=== PATIENT | male | born 1930 | race Caucasian/White ===

== ENCOUNTER 2019-01-18 17:31 | Inpatient (IN) ==
--- NOTE | 2019-01-18 17:52 | Emergency Department Note ---
ED Disposition Clinical Impression: Hypoglycemia, Altered mental status, Weakness, Medication side effect, Pneumonia Disposition: Still a Patient Condition on Discharge: Fair Referrals: Kunal Fair MD [Primary Care Provider] - - Critical Care Critical Care Time: No Attestation: On 01/18/19, the high probability of a clinically significant, sudden or life threatening deterioration of the following system(s) required my full and direct attention, intervention and personal management. The time I documented below is in addition to time spent performing reported procedures but includes the fol lowing listed in this critical care notation. Medical Decision Making - Medical Records Medical records reviewed: Yes: I reviewed the patient's medical records. - Blane Inquiry Pt receiving controlled substance: No Blane was queried for this patient: No Vital Signs: 01/18/19 17:39 01/18/19 19:53 Temperature 98.6 F Temperature Source Oral Pulse Rate [Left Radial] 114 H 73 Respiratory Rate 17 16 Blood Pressure [Right Arm] 129/55 L 109/56 L Blood Pressure Mean [Right Arm] 79 73 Blood Pressure Source [Right Arm] Automatic Cuff Blood Pressure Position [Right Arm] Sitting 02 Sat by Pulse Oximetry 91 L 93 L Oxygen Delivery Method Room Air Nasal Cannula Oxygen Flow Rate (LPM) 2 - Lab Data Lab Results 01/18/19 17:34: POC Glucose 121 H 01/18/19 18:05: WBC 12.2 H, RBC 4.07 L, Hgb 12.6 L, Hct 38.1 L, MCV 93.7, MCH 31.1, MCHC 33.2, RDW 13.4, Plt Count 396, MPV 7.1 L, Neut % (Auto) 90.7 H, Lymph % (Auto) 3.7 L, [place] % (Auto) 5.1, Eos % (Auto) 0.4, Baso % (Auto) 0.1, Neut # (Auto) 11.1 H, Lymph # (Auto) 0.5 L, [place] # (Auto) 0.6, Eos # (Auto) 0.1, Baso # (Auto) 0.0, Total Counted 100, Neutrophils % (Manual) 87 H, Band Neutrophils % 7.0, Lymphocytes % (Manual) 4 L, Monocytes % (Manual) 2, Platelet Estimate [place], RBC Morphology Normal 01/18/19 18:05: Sodium 138, Potassium 4.2, Chloride 101, Carbon Dioxide 25, Anion Gap 16.2 H, BUN 14, Creatinine 0.93, Estimated Creat Clear 61, Estimated GFR 77, Est GFR ( Amer) 93, Glucose 120 H, Calcium 8.2 L, Total Bilirubin 0.3, AST 50 H, ALT 40, Alkaline Phosphatase 51, Total Creatine Kinase 610 H*, CK-MB (CK-2) 5.2 H, CK-MB (CK-2) Rel Index 0.9, Troponin I < 0.02, Total Protein 6.6, Albumin 2.9 L, Globulin 3.7 H, Albumin/Globulin Ratio 0.8 L 01/18/19 18:40: Urine Color Yellow, Urine Appearance Clear, Urine pH 6.0, Ur Specific [place] 1.025, Urine Protein 1+, Urine Glucose (UA) Negative, Urine Ketones Negative, Urine Blood Trace-i, Urine Nitrate Negative, Urine Bilirubin Negative, Urine Urobilinogen 0.2, Ur Leukocyte Esterase Negative, Urine RBC 3-5, Urine WBC 3-5, Ur Renal Epithelial Cell Occasional, Hyaline Casts 3-5 01/18/19 18:40: Urine Opiates Screen Positive H, Urine Methadone Screen Negative, Ur Barbituates Screen Negative, Ur Phencyclidine Scrn Negative, Ur Amphetamines Screen Negative, U Benzodiazepines Scrn Negative, Urine Cocaine Screen Negative, U Marijuana (THC) Screen Negative 01/18/19 19:53: POC Glucose 88 Result diagrams: 01/18/19 18:05 01/18/19 18:05 Orders (Tests/Meds): ED MEDICATIONS Discontinued Medications Generic Name Dose Route Start Last Admin Trade Name Glenn PRN Reason Stop Dose Admin Naloxone HCl 0.4 mg 01/18/19 19:17 01/18/19 19:29 Narcan 0.4mg/Ml Vial IV 01/18/19 19:18 0.4 mg ONCE ONE Administration ORDERS Category Date Time Status CT head/brain wo con Stat Cat Scan 01/18/19 17:47 Taken XR chest portable Stat Exams 01/18/19 17:47 Taken Urinalysis and Microscopic Stat Lab 01/18/19 18:40 Ordered ABG [Arterial Blood Gas] Stat RT 01/18/19 17:55 Ordered - Radiology Data #1 Image(s): Chest Image Reviewed: Yes I reviewed the patient's radiology image Preliminary Findings: Abnormal CXR preliminary report: Chronic changes cannot exclude acute infiltrates - ECG Data Tracing #1 Normal sinus rhythm 88/min Baseline artifact no acute findings ECG initial impression date: 01/18/19 ECG initial impression time: 17:05 Medical Decision Narrative: Patient remained hemodynamically stable, he remained stable on 2 L nasal cannula to keep his saturation above 90%, he was given Narcan with no difference in his mental status. I was unable to comment on his chest x-ray due to rotation and chronic changes pneumonia cannot be excluded. I spoke with Dr. Thompson who agreed to admit the patient for IV antibiotics and oxygen supplementation Altered Mental Status HPI - General Chief Complaint: Weakness Stated Complaint: weakness Time Seen by Provider: 01/18/19 17:40 Mode of Arrival: EMS Limitations: No Limitations Description of Symptoms (Recalled from ER Triage Doc. by RN): Per EMS pt fell going down on his knees, daugher states she eased him down and has been weak with no appetite for a few days - History of Present Illness HPI narrative: 88 years old white male with history of Dementia, diabetes mellitus type 2 and peripheral neuropathy. He has recently started a new medication for dementia an d uses Neurontin, tramadol, and hydrocodone for his neuropathy. Per his daughter he usually stays up all night watching TV and sleeps during the day. Today at 5 PM when she arrived he was moaning and groaning, so she contacted the EMS who arrived and found his blood sugar to be in the 50s and was given glucose with improvement, got up walked to the bathroom and back but upon arrival to the kitchen his knees got weak and he buckled, she assisted him to a chair and contacted EMS again and was brought to the ED for evaluation. ED the patient is alert oriented to person and place but not the date and his daughter states this is normal for him if he does not have his watch. He denies having chest pain shortness of breath abdominal pain nausea vomiting or diarrhea. He denies having dysuria hematuria or frequency. He is in no cardiopulmonary distress. complaint: weakness Onset (ago): minute(s) Time: 17:00 Timing confirmed by: family member Severity: moderate Consistency of symptoms: waxing and waning Context: change in medication Treatments prior to arrival: glucose - Related Data Home Medications Medication Instructions Recorded Confirmed Ascorbic Acid [Vitamin C] 500 mg PO DAILY 01/18/19 01/18/19 Aspirin [Aspir 81] 81 mg PO DAILY 01/18/19 01/18/19 Carbidopa/Levodopa [Carbidopa-Levo 1 each PO DAILY 01/18/19 01/18/19 25-100 mg Odt] Fenofibrate Nanocrystallized 145 mg PO DAILY 01/18/19 01/18/19 [Fenofibrate] Furosemide [Furosemide 40MG tAB] 40 mg PO DAILY 01/18/19 01/18/19 Glimepiride 4 mg PO DAILY 01/18/19 01/18/19 Hydrocod/Acet 5/325 mg [[place] 1 tab PO DAILY 01/18/19 01/18/19 5/325mg tablet] Insulin NPH Hum/Reg Insulin Hm 15 unit SQ DAILY 01/18/19 01/18/19 [Humulin 70/30 Kwikpen] Levothyroxine Sodium [Synthroid 25 mcg PO DAILY 01/18/19 01/18/19 25mcg (0.025mg) tablet] Memantine HCl/Donepezil HCl 21 mg PO DAILY 01/18/19 01/18/19 [Namzaric 21 mg-10 mg Capsule] Metformin HCl 1,000 mg PO DAILY 01/18/19 01/18/19 Metoclopramide HCl [Metoclopramide 5 mg PO DAILY 01/18/19 01/18/19 10mg Tablet] Multivitamin [Multi-Day Vitamins] 1 each PO DAILY 01/18/19 01/18/19 Perindopril Erbumine 4 mg PO DAILY 01/18/19 01/18/19 Pravastatin Sodium 80 mg PO DAILY 01/18/19 01/18/19 Spironolactone 25 mg PO DAILY 01/18/19 01/18/19 Tramadol HCl [Tramadol 50mg 50 mg PO DAILY 01/18/19 01/18/19 Tab] Allergies Allergy/AdvReac Type Severity Reaction Status Date / Time Penicillins [PENICILLINS] Allergy Intermediate I-HIVES Unverified 11/13/17 14:33 [facility] History - Hepatitis A Screen Drug use history?: No High risk sexual behaviors?: No History of sexually transmitted infection?: No Currently employed?: No Childcare worker?: No Do you have indoor plumbing?: Yes Do you have electricity?: Yes Attestation statement:: This patient has been screened for Hepatitis A risk factors. I have reviewed the patient's past medical history: Yes Medical History: Reports:: Diabetes Mellitus Type 2 Denies:: Diabetes Mellitus Type 1 - Social History Alcohol Intake: never Occupational Status: retired - Psychiatric History Expresses thoughts of harming self/others: None Suicide Plan Description: No Plan ROS Obtained: Yes All systems reviewed & no additional complaints Physical Exam - General General appearance: alert, in no apparent distress - Head Head exam: atraumatic, normocephalic, normal inspection - Eye Eye exam: Present: normal appearance, PERRL, EOMI, conjunctival redness. Absent: scleral icterus, nystagmus - ENT ENT exam: Present: normal exam, normal oropharynx, mucous membranes moist, TM's normal bilaterally, normal external ear exam - Neck Neck exam: Present: normal inspection, full ROM, trachea midline. Absent: tenderness, meningismus, lymphadenopathy - Chest Chest inspection: Present: normal inspection, symmetric chest wall rise. Absent: tenderness - Respiratory Respiratory exam: Present: normal lung sounds bilaterally, other (Initially he had coarse rhonchi that cleared with deep inspiration. ). Absent: respiratory distress, wheezes - Cardiovascular Cardiovascular exam: Present: regular rate, normal rhythm, normal heart sounds. Absent: JVD - Abdominal Exam Abdominal exam: Present: soft, normal bowel sounds. Absent: distention, tenderness, guarding, rebound, rigidity - Extremities Exam Extremities exam: Present: normal inspection, full ROM, normal capillary refill. Absent: tenderness, pedal edema, calf tenderness - Back Exam Back exam: Present: normal inspection. Absent: full ROM, tenderness, CVA tenderness (R), CVA tenderness (L), paraspinal tenderness, vertebral tenderness - Neurological Exam Neurological exam: Present: alert, CN II-XII intact, motor sensory deficit, reflexes normal (Is oriented to place and person but not the date or the day.) - Psychiatric Psychiatric exam: Present: normal affect, normal mood - Skin Skin exam: Present: warm, dry, intact, normal color - Lymphatic Lymphatic Findings: no adenopathy
[2019-01-18 18:16] LABS: Basophils % 0.1 % (0.1-2.0); Eosinophils # 0.1 K/mm3 (0.0-0.4); Eosinophils % 0.4 % (0.1-12.0); Hematocrit 38.1 % (42.0-52.0); Hemoglobin 12.6 g/dL (14.1-18.0); Lymphocytes # 0.5 K/mm3 (0.7-4.5); Lymphocytes % 3.7 % (10-50); Mean Corpuscular HGB Conc 33.2 g/dL (31.8-35.4); Mean Corpuscular Hemoglobin 31.1 pg (27.0-31.2); Mean Corpuscular Volume 93.7 fl (80-94); Mean Platelet Volume 7.1 fl (7.4-10.4); Monocytes # 0.6 K/mm3 (0.1-1.0); Monocytes % 5.1 % (1.7-9.3); Neutrophils # 11.1 K/mm3 (1.8-7.8); Neutrophils % 90.7 % (37.0-80.0); Platelet Count 396 K/mm3 (142-424); Red Blood Count 4.07 M/mm3 (4.60-6.20); Red Cell Distribution Width 13.4 % (11.5-17.5); White Blood Count 12.2 K/mm3 (4.8-10.8)
[2019-01-18 18:32] LABS: Lymphocytes % 4 % (10-50); Monocytes % 2 % (2-9); Neutrophils % 87 % (42-76); Total Cells Counted 100
[2019-01-18 18:33] LABS: RBC Morphology Normal
[2019-01-18 18:44] LABS: Alanine Aminotransferase 40 U/L (12-78); Albumin Level 2.9 gm/dL (3.4-5.0); Albumin/Globulin Ratio 0.8 (1.1-1.8); Alkaline Phosphatase 51 U/L (46-116); Anion Gap 16.2 mEq/L (5-15); Aspartate Amino Transferase 50 U/L (15-37); Bilirubin,Total 0.3 mg/dL (0.2-1.0); Blood Urea Nitrogen 14 mg/dL (7-18); Calcium 8.2 mg/dL (8.5-10.1); Carbon Dioxide 25 mmol/L (21.0-32.0); Chloride 101 mmol/L (98-107); Creatine Kinase 610 U/L (39-308); Globulin 3.7 gm/dl (1.3-3.2); Glucose 120 mg/dL (74-106); Potassium 4.2 mmoL/L (3.5-5.1); Sodium 138 mmol/L (136-145); Total Protein,Serum 6.6 gm/dL (6.4-8.2)
[2019-01-18 18:44] LABS: Microscopic, Urine URINE MICROSCOPIC (MICROSCOPIC)
[2019-01-18 18:47] LABS: Appearance,Urine CLEAR (Clear); Bilirubin,Urine Negative (Negative); Blood, Urine TRACE-I (Negative); Color,Urine YELLOW (Yellow); Glucose,Urine (UA) Negative (Negative); Ketones,Urine Negative (Negative); Leukocyte Esterase,Urine Negative (Negative); Protein,Urine 1+ (Negative); Specific Gravity, Urine 1.025 (1.005-1.030); Urobilinogen,Urine 0.2 EU/dl (0.2)
[2019-01-18 18:57] LABS: Amphetamine/Metha Screen,Urine Negative ng/mL (<1000); Barbiturates Screen,Urine Negative ng/mL (<200); Benzodiazepines Screen,Urine Negative ng/mL (<200); Cannabinoid Screen,Urine Negative ng/mL (<50); Cocaine Screen,Urine Negative ng/mL (<300); Methadone Screen,Urine Negative ng/mL (<300); Opiate Screen,Urine Positive ng/mL (<300); Phencyclidine Screen,Urine Negative ng/mL (<25)
[2019-01-18 18:58] LABS: Renal Epithelial Cells,Urine Occasional #/lpf (0)
[2019-01-18 20:15] LABS: ABG Base Excess 2.7 mmol/L (-2.4-2.3); ABG HCO3 26.1 mmhg (22.0-26.0); ABG Oxygen Saturation 95 % (90-100); ABG PH 7.49 mmol/L (7.35-7.45); ABG PO2 72.7 mmhg (80-100); ABG TCO2 27.1 mmhg (23-27); Oxygen 2 %
[2019-01-18 20:16] LABS: Allen's Test Y
[2019-01-19 06:51] LABS: Basophils % 0.1 % (0.1-2.0); Eosinophils % 0.1 % (0.1-12.0); Hematocrit 37.6 % (42.0-52.0); Hemoglobin 12.3 g/dL (14.1-18.0); Lymphocytes # 0.6 K/mm3 (0.7-4.5); Lymphocytes % 9.4 % (10-50); Mean Corpuscular HGB Conc 32.7 g/dL (31.8-35.4); Mean Corpuscular Hemoglobin 30.6 pg (27.0-31.2); Mean Corpuscular Volume 93.6 fl (80-94); Mean Platelet Volume 6.8 fl (7.4-10.4); Monocytes # 0.6 K/mm3 (0.1-1.0); Monocytes % 9.2 % (1.7-9.3); Neutrophils # 5.3 K/mm3 (1.8-7.8); Neutrophils % 81.2 % (37.0-80.0); Platelet Count 376 K/mm3 (142-424); Red Blood Count 4.02 M/mm3 (4.60-6.20); Red Cell Distribution Width 13.4 % (11.5-17.5); White Blood Count 6.6 K/mm3 (4.8-10.8)
[2019-01-19 06:55] LABS: Anion Gap 13.9 mEq/L (5-15); Calcium 8.5 mg/dL (8.5-10.1); Potassium 3.9 mmoL/L (3.5-5.1)
--- NOTE | 2019-01-19 08:07 | Pharmacy Consult Notes ---
[facility] Pharmacy VTE Monitoring - Patient Demographics Admission date: 01/18/19 Report Date: 01/19/19 Time: 08:07 Allergies/Adverse Reactions: Patient Allergies Penicillins [PENICILLINS] Allergy (Intermediate, Verified 01/18/19 20:31) I-HIVES Height: 1.8 m Weight: 88.989 kg Patient Problems: Current Active Problems Hypoglycemia (Acute) Altered mental status (Acute) Weakness (Acute) Medication side effect (Acute) Pneumonia (Acute) - VTE Risk Labs: VTE Related Lab Results Hgb 12.3 g/dL (14.1-18.0) L 01/19/19 06:28 Hct 37.6 % (42.0-52.0) L 01/19/19 06:28 Plt Count 376 K/mm3 (142-424) 01/19/19 06:28 BUN 13 mg/dL (7-18) 01/19/19 06:28 Creatinine 0.93 mg/dL (0.70-1.30) 01/19/19 06:28 Estimated Creat Clear 67 mL/min (50-200) 01/19/19 06:28 Was VTE Risk Assessment Performed: Yes VTE Score: 6 VTE Risk Level: Moderate Risk - Prophylaxis VTE Prophylaxis Ordered?: Yes Types of VTE Prophylaxis: TEDS Knee High Location of Applied Device: Bilateral Lower Extremeties - VTE Diagnosis Confirmed Treatment or plan recommended: Continue Current Treatment
--- NOTE | 2019-01-19 15:47 | History & Physical Report ---
*Admission Date: 01/18/19 *Chief complaint: Change in mental status. *History of present illness: This 88-year-old white male diabetic suffered a decline in his mental and physical health over the past several months. He was admitted through the emergency room last night with a definite change in mental status and with weakness. He was brought to the emergency room by his family. They are not with him during this assessment and the patient is quite confused and disoriented during this assessment. On admission he had an elevated white blood cell count but on repeat this morning it was normal. He has had episodic low- grade fever since admission. The nurse reports that he seems less confused this morning but is definitely confused this afternoon. His blood sugar was found to be low when he was admitted through the emergency room. He takes carbidopa levodopa for Parkinson's disease. His family states that he has become more of a management issue recently. [facility] History I have reviewed the patient's past medical history: Yes (He has thyroid disease and takes levothyroxine) Medical History: Reports:: Cancer (prostate), Diabetes Mellitus Type 2 Denies:: Cerebrovascular Accident, Diabetes Mellitus Type 1, MRSA *Have you ever received a pneumonia vaccine?: Yes *Have you received a flu vaccine this season?: Yes Other Medical History: Reports: Cataracts (20 plus years ago), Sinus Problems (seasonal), Thyroid Disease (hypothyroidisn) Other Surgeries: Yes: Cancer Surgery (prostate), Cardiac Catheterization, Other (He has had a toe amputated) Amputation: Yes Fractures: Yes (bilateral wrist fx) - *Social History Educational Level: Completed College Smoking Status: Former smoker Tobacco Type: cigarettes # Packs/Day (cigarettes): 1 #Yrs smoked (if former smoker): 50 Smoking End Date: 1989 Alcohol Intake: never Substance Use Type: denies use *Occupational Status:: retired Household Members: spouse, children (A son of a heart attack a year ago.) *Travel in the last 8 weeks: None - Psychiatric History Expresses thoughts of harming self/others: None Suicide Plan Description: No Plan Family Hx:: Coronary Artery Disease Comment: There is heart disease and high blood pressure in the family. Review of Systems - Review of Systems Review of systems:: unable to obtain Meds Home Medications Medication Instructions Recorded Confirmed Type Aspirin [Aspir 81] 81 mg PO DAILY 01/18/19 01/18/19 History Fenofibrate Nanocrystallized 145 mg PO DAILY 01/18/19 01/18/19 History [Fenofibrate] Furosemide [Furosemide 40MG tAB] 40 mg PO BID 01/18/19 01/19/19 History Glimepiride 4 mg PO BID 01/18/19 01/19/19 History Hydrocod/Acet 5/325 mg [[place] 1 tab PO TIDP PRN 01/18/19 01/19/19 History 5/325mg tablet] Insulin NPH Hum/Reg Insulin Hm 0 unit SQ DIRECTED 01/18/19 01/19/19 History [Humulin 70/30 Kwikpen] Levothyroxine Sodium [Synthroid 25 mcg PO DAILY 01/18/19 01/18/19 History 25mcg (0.025mg) tablet] Memantine HCl/Donepezil HCl 1 cap PO HS 01/18/19 01/19/19 History [Namzaric 21 mg-10 mg Capsule] Metformin HCl 1,000 mg PO BID 01/18/19 01/19/19 History Multivitamin [Multi-Day Vitamins] 1 each PO DAILY 01/18/19 01/18/19 History Perindopril Erbumine 2 mg PO DAILY 01/18/19 01/19/19 History Pravastatin Sodium 80 mg PO HS 01/18/19 01/19/19 History Spironolactone 25 mg PO DAILY 01/18/19 01/18/19 History Tramadol HCl [Tramadol 50mg 50 mg PO TID 01/18/19 01/19/19 History Tab] Ascorbic Acid [Vitamin C with [place] 1,000 mg PO DAILY 01/19/19 01/19/19 History Hips] Carbidopa/Levodopa 0 tab PO DIRECTED 01/19/19 01/19/19 History [Carbidopa/Levodopa 25/100mg Tablet] Gabapentin 800 mg PO TID 01/19/19 01/19/19 History Metoclopramide HCl [Reglan 5mg 2.5 mg PO TIDP PRN 01/19/19 01/19/19 History Tablet] Allergies Allergy/AdvReac Type Severity Reaction Status Date / Time Penicillins [PENICILLINS] Allergy Intermediate I-HIVES Verified 01/18/19 20:31 Exam Vital signs and Labs for Last 24 Hours: Temp Pulse Resp BP Pulse Ox 100.4 F H 78 24 172/85 H 96 01/19/19 12:43 01/19/19 12:43 01/19/19 12:43 01/19/19 12:43 01/19/19 12:43 Laboratory Results - last 24 hr 01/18/19 17:34: POC Glucose 121 H 01/18/19 18:05: WBC 12.2 H, RBC 4.07 L, Hgb 12.6 L, Hct 38.1 L, MCV 93.7, MCH 31.1, MCHC 33.2, RDW 13.4, Plt Count 396, MPV 7.1 L, Neut % (Auto) 90.7 H, Lymph % (Auto) 3.7 L, [place] % (Auto) 5.1, Eos % (Auto) 0.4, Baso % (Auto) 0.1, Neut # (Auto) 11.1 H, Lymph # (Auto) 0.5 L, [place] # (Auto) 0.6, Eos # (Auto) 0.1, Baso # (Auto) 0.0, Total Counted 100, Neutrophils % (Manual) 87 H, Band Neutrophils % 7.0, Lymphocytes % (Manual) 4 L, Monocytes % (Manual) 2, Platelet Estimate Normal, RBC Morphology Normal 01/18/19 18:05: Sodium 138, Potassium 4.2, Chloride 101, Carbon Dioxide 25, Anion Gap 16.2 H, BUN 14, Creatinine 0.93, Estimated Creat Clear 61, Estimated GFR 77, Est GFR ( Amer) 93, Glucose 120 H, Calcium 8.2 L, Total Bilirubin 0.3, AST 50 H, ALT 40, Alkaline Phosphatase 51, Total Creatine Kinase 610 H*, CK-MB (CK-2) 5.2 H, CK-MB (CK-2) Rel Index 0.9, Troponin I < 0.02, Total Protein 6.6, Albumin 2.9 L, Globulin 3.7 H, Albumin/Globulin Ratio 0.8 L 01/18/19 18:40: Urine Color Yellow, Urine Appearance Clear, Urine pH 6.0, Ur Specific [place] 1.025, Urine Protein 1+, Urine Glucose (UA) Negative, Urine Ketones Negative, Urine Blood Trace-i, Urine Nitrate Negative, Urine Bilirubin Negative, Urine Urobilinogen 0.2, Ur Leukocyte Esterase Negative, Urine RBC 3-5, Urine WBC 3-5, Ur Renal Epithelial Cell Occasional, Hyaline Casts 3-5 01/18/19 18:40: Urine Opiates Screen Positive H, Urine Methadone Screen Negative, Ur Barbituates Screen Negative, Ur Phencyclidine Scrn Negative, Ur Amphetamines Screen Negative, U Benzodiazepines Scrn Negative, Urine Cocaine Screen Negative, U Marijuana (THC) Screen Negative 01/18/19 19:53: POC Glucose 88 01/18/19 20:14: Specimen Source R/r, O2 % 2, ABG pH 7.49 H, ABG pCO2 35.0, ABG pO2 72.7 L, ABG HCO3 26.1 H, ABG Total CO2 27.1 H, ABG O2 Saturation 95, ABG Base Excess 2.7 H, [place] Test Y 01/19/19 05:59: POC Glucose 90 01/19/19 06:28: WBC 6.6 D, RBC 4.02 L, Hgb 12.3 L, Hct 37.6 L, MCV 93.6, MCH 30.6, MCHC 32.7, RDW 13.4, Plt Count 376, MPV 6.8 L, Neut % (Auto) 81.2 H, Lymph % (Auto) 9.4 L, [place] % (Auto) 9.2, Eos % (Auto) 0.1, Baso % (Auto) 0.1, Neut # (Auto) 5.3, Lymph # (Auto) 0.6 L, [place] # (Auto) 0.6, Eos # (Auto) 0.0, Baso # (Auto) 0.0 01/19/19 06:28: Sodium 139, Potassium 3.9, Chloride 103, Carbon Dioxide 26, Anion Gap 13.9, BUN 13, Creatinine 0.93, Estimated Creat Clear 67, Estimated GFR 77, Est GFR ( Amer) 93, Glucose 97, Calcium 8.5 01/19/19 11:19: POC Glucose 145 H I & O for Last 24 hours: Intake & Output 01/17/19 01/18/19 01/19/19 01/20/19 11:59 11:59 11:59 11:59 Intake Total 1480 / 1480 0 / 0 Output Total 600 / 600 Balance 880 / 880 0 / 0 Weight 196 lb 3 oz Microbiology Reports for the Last 24 Hours: Microbiology 01/18/19 22:00 Sputum - Expectorated Sputum Gram Stain - Final - Constitutional Comments: He was in bed resting at the time of this exam. He was asleep and awakened. He was confused and disoriented and unable to identify me or his location. He seemed to have trouble directing his gaze. - *Routine HEENT Exam Head: Present: normocephalic Eye: Present: PERRL. Absent: conjunctival icterus (But there was chemosis present) ENT: Present: mucous membranes moist - *Routine Neck Exam Present: supple - Routine Chest/Breast/Axilla Exam Chest wall: Absent: tenderness Axillae: Absent: lymphadenopathy - *Routine Respiratory Exam Present: decreased breath sounds, CTA bilaterally - *Routine Cardiovascular Exam Present: RRR - *Routine Abdominal Exam Present: soft Comments: He describes some epigastric tenderness. - *Routine Rectal Exam Comments: No rectal exam done. - *Routine Extremities Exam Absent: edema - *Routine Skin Exam Present: intact, dry - *Routine Neurological Exam Present: altered mental status. Absent: alert, oriented X3 Babinski was equivocal on the right H&P: Result - Imaging and Cardiology CT scan - head Status: final report Chest x-ray Status: final report Assessment and Plan (1) Insulin dependent diabetes mellitus Current visit: Yes Status: Acute Category: Medical Code(s): E11.9 - Type 2 diabetes mellitus without complications; Z79.4 - intermediate (current) use of insulin (2) Hypothyroidism (acquired) Current visit: Yes Status: Acute Category: Medical Code(s): E03.9 - Hypothyroidism, unspecified (3) History of prostate cancer Current visit: Yes Status: Acute Category: Medical Code(s): Z85.46 - Personal history of malignant neoplasm of prostate (4) Altered mental status Current visit: Yes Status: Acute Category: Medical Code(s): R41.82 - Altered mental status, unspecified (5) Hypoglycemia Current visit: Yes Status: Acute Category: Medical Code(s): E16.2 - Hypoglycemia, unspecified (6) Medication side effect Current visit: Yes Status: Acute Category: Medical Code(s): T88.7XXA - Unspecified adverse effect of drug or medicament, initial encounter (7) Pneumonia Current visit: Yes Status: Acute Category: Medical Code(s): J18.9 - Pneumonia, unspecified organism (8) Weakness Current visit: Yes Status: Acute Category: Medical Code(s): R53.1 - Weakness - Assessment and plan all Dx Assessment and Plan for all problems:: Repeat labs including cardiac enzymes. Consider additional antibiotic.
[2019-01-19 15:55] LABS: Basophils % 0.1 % (0.1-2.0); Eosinophils % 0.4 % (0.1-12.0); Hematocrit 38.9 % (42.0-52.0); Hemoglobin 12.8 g/dL (14.1-18.0); Lymphocytes # 0.5 K/mm3 (0.7-4.5); Lymphocytes % 8.7 % (10-50); Mean Corpuscular HGB Conc 32.8 g/dL (31.8-35.4); Mean Corpuscular Hemoglobin 30.8 pg (27.0-31.2); Mean Platelet Volume 6.8 fl (7.4-10.4); Monocytes # 0.4 K/mm3 (0.1-1.0); Neutrophils # 5.2 K/mm3 (1.8-7.8); Neutrophils % 83.9 % (37.0-80.0); Platelet Count 354 K/mm3 (142-424); Red Blood Count 4.14 M/mm3 (4.60-6.20); Red Cell Distribution Width 13.6 % (11.5-17.5); White Blood Count 6.2 K/mm3 (4.8-10.8)
[2019-01-19 16:07] LABS: Anion Gap 13.5 mEq/L (5-15); Potassium 3.5 mmoL/L (3.5-5.1)
[2019-01-19 16:08] LABS: Calcium 8.4 mg/dL (8.5-10.1)
--- NOTE | 2019-01-20 08:18 | Progress Note ---
Internal Medicine - PN: Subj *Date: 01/20/19 *Time: 08:15 Interval history: Patient does not feel well this a.m. He does not why. He denies chest pain and shortness of breath. He does not feel like eating. Exam Vital signs and Labs for Last 24 Hours: Temp Pulse Resp BP Pulse Ox 97.3 F L 78 20 145/70 H 95 01/20/19 08:00 01/20/19 08:00 01/20/19 08:00 01/20/19 08:00 01/20/19 08:00 Laboratory Results - last 24 hr 01/19/19 11:19: POC Glucose 145 H 01/19/19 15:45: Total Creatine Kinase 619 H*, CK-MB (CK-2) 2.2 D, CK-MB (CK-2) Rel Index 0.4, Troponin I 0.02 01/19/19 15:45: Sodium 137, Potassium 3.5, Chloride 99, Carbon Dioxide 25, Anion Gap 13.5, BUN 17 D, Creatinine 1.03, Estimated Creat Clear 65, Estimated GFR 68, Est GFR ( Amer) 83, Glucose 237 H D, Calcium 8.4 L 01/19/19 15:45: WBC 6.2, RBC 4.14 L, Hgb 12.8 L, Hct 38.9 L, MCV 94.0, MCH 30.8, MCHC 32.8, RDW 13.6, Plt Count 354, MPV 6.8 L, Neut % (Auto) 83.9 H, Lymph % (Auto) 8.7 L, [place] % (Auto) 7.0, Eos % (Auto) 0.4, Baso % (Auto) 0.1, Neut # (Auto) 5.2, Lymph # (Auto) 0.5 L, [place] # (Auto) 0.4, Eos # (Auto) 0.0, Baso # (Auto) 0.0 01/19/19 16:24: POC Glucose 213 H 01/19/19 22:32: POC Glucose 240 H 01/20/19 05:35: Total Creatine Kinase 350 H D 01/20/19 06:44: POC Glucose 222 H I & O for Last 24 hours: Intake & Output 01/17/19 01/18/19 01/19/19 01/20/19 11:59 11:59 11:59 11:59 Intake Total 1480 / 1480 0 / 0 Output Total 600 / 600 3600 / 3600 Balance 880 / 880 -3600 / -3600 Weight 196 lb 3 oz Microbiology Reports for the Last 24 Hours: Microbiology 01/18/19 22:00 Sputum - Expectorated Sputum Gram Stain - Final 01/18/19 22:00 Sputum - Expectorated Sputum Sputum Culture - Preliminary - Constitutional no acute distress Comments: Appears not to feel well - *Routine Respiratory Exam Comments: Crackles on the right. Decreased breath sounds on the left - *Routine Cardiovascular Exam Present: RRR - *Routine Abdominal Exam Present: soft, normoactive bowel sounds. Absent: tenderness, distended - *Routine Extremities Exam Absent: edema, calf tenderness - *Routine Neurological Exam Somewhat lethargic. Answers all questions appropriately. Assessment and Plan (1) Insulin dependent diabetes mellitus Current visit: Yes Status: Acute Category: Medical Code(s): E11.9 - Type 2 diabetes mellitus without complications; Z79.4 - intermediate (current) use of insulin (2) Hypothyroidism (acquired) Current visit: Yes Status: Acute Category: Medical Code(s): E03.9 - Hypothyroidism, unspecified (3) History of prostate cancer Current visit: Yes Status: Acute Category: Medical Code(s): Z85.46 - Personal history of malignant neoplasm of prostate (4) Altered mental status Current visit: Yes Status: Acute Category: Medical Code(s): R41.82 - Altered mental status, unspecified (5) Hypoglycemia Current visit: Yes Status: Acute Category: Medical Code(s): E16.2 - Hypoglycemia, unspecified (6) Medication side effect Current visit: Yes Status: Acute Category: Medical Code(s): T88.7XXA - Unspecified adverse effect of drug or medicament, initial encounter (7) Pneumonia Current visit: Yes Status: Acute Category: Medical Code(s): J18.9 - Pneumonia, unspecified organism (8) Weakness Current visit: Yes Status: Acute Category: Medical Code(s): R53.1 - Weakness - Assessment and plan all Dx Assessment and Plan for all problems:: With out of sugars will go on and add sliding scale insulin. We will schedule duo nebs. Will do flu testing. [place]
[2019-01-20 08:42] LABS: Albumin Level 2.4 gm/dL (3.4-5.0); Albumin/Globulin Ratio 0.6 (1.1-1.8); Anion Gap 18.1 mEq/L (5-15); Bilirubin,Total 0.3 mg/dL (0.2-1.0); Calcium 8.2 mg/dL (8.5-10.1); Globulin 3.8 gm/dl (1.3-3.2); Potassium 3.1 mmoL/L (3.5-5.1); Total Protein,Serum 6.2 gm/dL (6.4-8.2)
--- NOTE | 2019-01-21 09:04 | Progress Note ---
Internal Medicine - PN: Subj *Date: 01/21/19 *Time: 09:01 Interval history: Patient is not quite sure how he feels today. He denies chest pain and shortness of breath. He would like his legs rubbed. He does not recall what he did yesterday. Sputum culture shows normal ivy. Flu test was negative. Selected Entries 01/20/19 12:54 01/21/19 07:10 Weight 196 lb 194 lb 12.8 oz Exam Vital signs and Labs for Last 24 Hours: Temp Pulse Resp BP Pulse Ox 97.0 F L 72 16 156/71 H 93 L 01/21/19 08:00 01/21/19 08:00 01/21/19 08:00 01/21/19 08:00 01/21/19 08:00 Laboratory Results - last 24 hr 01/20/19 11:26: POC Glucose 223 H 01/20/19 16:48: POC Glucose 268 H 01/20/19 19:56: POC Glucose 194 H 01/21/19 05:57: POC Glucose 217 H I & O for Last 24 hours: Intake & Output 01/18/19 01/19/19 01/20/19 01/21/19 11:59 11:59 11:59 11:59 Intake Total 1480 / 1480 150 / 150 3330 / 3330 Output Total 600 / 600 3600 / 3600 1200 / 1200 Balance 880 / 880 -3450 / -3450 2130 / 2130 Weight 196 lb 3 oz 194 lb 12.8 oz Microbiology Reports for the Last 24 Hours: Microbiology 01/18/19 22:00 Sputum - Expectorated Sputum Gram Stain - Final 01/18/19 22:00 Sputum - Expectorated Sputum Sputum Culture - Final Normal Respiratory Ivy - Constitutional no acute distress Comments: He is feeding himself breakfast this morning. He is slightly more conversant. - *Routine Respiratory Exam Comments: Bilateral coarse crackles posteriorly. Congested cough. - *Routine Cardiovascular Exam Present: RRR, murmur - *Routine Abdominal Exam Present: soft, normoactive bowel sounds. Absent: tenderness, distended - *Routine Extremities Exam Absent: edema, calf tenderness - *Routine Neurological Exam Present: alert. 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 (2) Hypothyroidism (acquired) Current visit: Yes Status: Acute Category: Medical Code(s): E03.9 - Hypothyroidism, unspecified (3) History of prostate cancer Current visit: Yes Status: Acute Category: Medical Code(s): Z85.46 - Personal history of malignant neoplasm of prostate (4) Altered mental status Current visit: Yes Status: Acute Category: Medical Code(s): R41.82 - Alt ered mental status, unspecified (5) Hypoglycemia Current visit: Yes Status: Acute Category: Medical Code(s): E16.2 - Hypoglycemia, unspecified (6) Medication side effect Current visit: Yes Status: Acute Category: Medical Code(s): T88.7XXA - Unspecified adverse effect of drug or medicament, initial encounter (7) Pneumonia Current visit: Yes Status: Acute Category: Medical Code(s): J18.9 - Pneumonia, unspecified organism (8) Weakness Current visit: Yes Status: Acute Category: Medical Code(s): R53.1 - Weak ness - Assessment and plan all Dx Assessment and Plan for all problems:: Continue with antibiotic and duo nebs. Physical therapy consult
[2019-01-21 09:59] LABS: Anion Gap 13.7 mEq/L (5-15); Calcium 8.1 mg/dL (8.5-10.1); Potassium 3.7 mmoL/L (3.5-5.1)
--- NOTE | 2019-01-22 08:07 | Progress Note ---
Internal Medicine - PN: Subj Interval history: Patient feels that he is doing okay. He does not recall yesterday. He denies chest pain. He states he is sometimes short of breath. He does state that his feet hurt. Per nursing: Patient refused PT yesterday. When approached aggressively to get out of bed with nursing he did so. Per nursing notes patient is not eating very well. He does not want his breakfast this morning. Exam Vital signs and Labs for Last 24 Hours: Temp Pulse Resp BP Pulse Ox 98.3 F 70 20 137/57 L 90 L 01/22/19 04:00 01/22/19 06:15 01/22/19 04:00 01/22/19 04:00 01/22/19 06:15 Laboratory Results - last 24 hr 01/21/19 09:20: Sodium 138, Potassium 3.7, Chloride 103, Carbon Dioxide 25, Anion Gap 13.7, BUN 26 H, Creatinine 0.97, Estimated Creat Clear 66, Estimated GFR 73, Est GFR ( Amer) 89, Glucose 267 H, Calcium 8.1 L 01/21/19 11:59: POC Glucose 254 H 01/21/19 16:58: POC Glucose 259 H 01/21/19 20:43: POC Glucose 271 H 01/22/19 05:38: POC Glucose 261 H I & O for Last 24 hours: Intake & Output 01/19/19 01/20/19 01/21/19 01/22/19 11:59 11:59 11:59 11:59 Intake Total 1480 / 1480 150 / 150 3480 / 3480 2222 / 2222 Output Total 600 / 600 3600 / 3600 1200 / 1200 Balance 880 / 880 -3450 / -3450 2280 / 2280 2222 / 2222 Weight 196 lb 3 oz 194 lb 12.8 oz 192 lb 4 oz Microbiology Reports for the Last 24 Hours: Microbiology 01/18/19 22:00 Sputum - Expectorated Sputum Gram Stain - Final 01/18/19 22:00 Sputum - Expectorated Sputum Sputum Culture - Final Normal Respiratory Marleen - Constitutional no acute distress Comments: Sitting up in the bed looking at his breakfast food. - *Routine Respiratory Exam Comments: Bilateral coarse crackles throughout. - *Routine Cardiovascular Exam Present: RRR, murmur - *Routine Abdominal Exam Present: soft, normoactive bowel sounds. Absent: tenderness - *Routine Extremities Exam Absent: edema - *Routine Neurological Exam Present: alert. 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 (2) Hypothyroidism (acquired) Current visit: Yes Status: Acute Category: Medical Code(s): E03.9 - Hypothyroidism, unspecified (3) History of prostate cancer Current visit: Yes Status: Acute Category: Medical Code(s): Z85.46 - Personal history of malignant neoplasm of prostate (4) Altered mental status Current visit: Yes Status: Acute Category: Medical Code(s): R41.82 - Altered mental status, unspecified (5) Hypoglycemia Current visit: Yes Status: Acute Category: Medical Code(s): E16.2 - Hypoglycemia, unspecified (6) Medication side effect Current visit: Yes Status: Acute Category: Medical Code(s): T88.7XXA - Unspecified adverse effect of drug or medicament, initial encounter (7) Pneumonia Current visit: Yes Status: Acute Category: Medical Code(s): J18.9 - Pneumonia, unspecified organism (8) Weakness Current visit: Yes Status: Acute Category: Medical Code(s): R53.1 - Weakness - Assessment and plan all Dx Assessment and Plan for all problems:: Care management note appreciated. Plan seems to be for short-term rehab. Family prefers [facility]. We will continue current care. Encourage patient to work with physical therapy.
--- NOTE | 2019-01-22 10:20 | Progress Note ---
Internal Medicine - PN: Subj *Date: 01/22/19 *Time: 10:19 Exam Vital signs and Labs for Last 24 Hours: Temp Pulse Resp BP Pulse Ox 98.7 F 79 20 132/57 L 91 L 01/22/19 08:00 01/22/19 09:52 01/22/19 08:00 01/22/19 08:00 01/22/19 09:52 Laboratory Results - last 24 hr 01/21/19 11:59: POC Glucose 254 H 01/21/19 16:58: POC Glucose 259 H 01/21/19 20:43: POC Glucose 271 H 01/22/19 05:38: POC Glucose 261 H I & O for Last 24 hours: Intake & Output 01/19/19 01/20/19 01/21/19 01/22/19 23:59 23:59 23:59 23:59 Intake Total 630 / 630 2439 / 2439 2674 / 2674 589 / 589 Output Total 2100 / 2100 2900 / 2900 400 / 400 Balance -1470 / -1470 -461 / -461 2274 / 2274 589 / 589 Weight 88.989 kg 88.904 kg 88.36 kg 87.203 kg Microbiology Reports for the Last 24 Hours: Microbiology 01/18/19 22:00 Sputum - Expectorated Sputum Gram Stain - Final 01/18/19 22:00 Sputum - Expectorated Sputum Sputum Culture - Final Normal Respiratory Marleen Assessment and Plan (1) Insulin dependent diabetes mellitus Current visit: Yes Status: Acute Category: Medical Code(s): E11.9 - Type 2 diabetes mellitus without complications; 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 (2) Hypothyroidism (acquired) Current visit: Yes Status: Acute Category: Medical Code(s): E03.9 - Hypothyroidism, unspecified (3) History of prostate cancer Current visit: Yes Status: Acute Category: Medical Code(s): Z85.46 - Personal history of malignant neoplasm of prostate (4) Altered mental status Current visit: Yes Status: Acute Category: Medical Code(s): R41.82 - Altered mental status, unspecified (5) Hypoglycemia Current visit: Yes Status: Acute Category: Medical Code(s): E16.2 - Hypoglycemia, unspecified (6) Medication side effect Current visit: Yes Status: Acute Category: Medical Code(s): T88.7XXA - Unspecified adverse effect of drug or medicament, initial encounter (7) Pneumonia Current visit: Yes Status: Acute Category: Medical Code(s): J18.9 - Pneumonia, unspecified organism (8) Weakness Current visit: Yes Status: Acute Category: Medical Code(s): R53.1 - Weakness The patient's infection will respond to the chosen ABx?: Yes Is the patient receiving the right drug, dose, and route?: Yes Could a more targeted ABx be ordered?: No (PATIENT AFEBRILE)
--- NOTE | 2019-01-23 08:13 | Progress Note ---
Internal Medicine - PN: Subj *Date: 01/23/19 *Time: 08:10 Interval history: Patient states he is not feeling well this morning. He tried to eat some breakfast and now has some right upper quadrant and epigastric pain. He denies any nausea or vomiting. He states he did sleep last night. Exam Vital signs and Labs for Last 24 Hours: Temp Pulse Resp BP Pulse Ox 98.3 F 79 20 144/59 H 94 L 01/23/19 08:00 01/23/19 08:00 01/23/19 08:00 01/23/19 08:00 01/23/19 08:00 Laboratory Results - last 24 hr 01/22/19 12:06: POC Glucose 237 H 01/22/19 16:56: POC Glucose 236 H 01/22/19 21:13: POC Glucose 329 H* 01/23/19 06:05: POC Glucose 238 H I & O for Last 24 hours: Intake & Output 01/20/19 01/21/19 01/22/19 01/23/19 11:59 11:59 11:59 11:59 Intake Total 150 / 150 3480 / 3480 2372 / 2372 440 / 440 Output Total 3600 / 3600 1200 / 1200 2800 / 2800 Balance -3450 / -3450 2280 / 2280 2372 / 2372 -2360 / -2360 Weight 194 lb 12.8 oz 192 lb 4 oz - Constitutional no acute distress - *Routine Respiratory Exam Present: rales (bibasilar) - *Routine Cardiovascular Exam Present: RRR - *Routine Abdominal Exam Present: soft, normoactive bowel sounds, tenderness (in the RUQ and epigastric area) - *Routine Extremities Exam Absent: cyanosis, clubbing, edema Assessment and Plan (1) Insulin dependent diabetes mellitus Current visit: Yes Status: Acute Category: Medical Code(s): E11.9 - Type 2 diabetes mellitus without complications; Z79.4 - skilled nursing (current) use of insulin (2) Hypothyroidism (acquired) Current visit: Yes Status: Acute Category: Medical Code(s): E03.9 - Hypothyroidism, unspecified (3) History of prostate cancer Current visit: Yes Status: Acute Category: Medical Code(s): Z85.46 - Personal history of malignant neoplasm of prostate (4) Altered mental status Current visit: Yes Status: Acute Category: Medical Code(s): R41.82 - Altered mental status, unspecified (5) Hypoglycemia Current visit: Yes Status: Acute Category: Medical Code(s): E16.2 - Hypoglycemia, unspecified (6) Medication side effect Current visit: Yes Status: Acute Category: Medical Code(s): T88.7XXA - Unspecified adverse effect of drug or medicament, initial encounter (7) Pneumonia Current visit: Yes Status: Acute Category: Medical Code(s): J18.9 - Pneumonia, unspecified organism (8) Weakness Current visit: Yes Status: Acute Category: Medical Code(s): R53.1 - Weakness (9) Abdominal pain Current visit: Yes Status: Acute Category: Medical Code(s): R10.9 - Unspecified abdominal pain - Assessment and plan all Dx Assessment and Plan for all problems:: Will get a CBC, CMP, amylase, lipase, and cardiac enzymes this morning due to new onset of epigastric and right upper quadrant pain. Will discuss disposition planning with care management. Further as per Dr. mendez.
[2019-01-23 08:34] LABS: Basophils % 0.3 % (0.1-2.0); Eosinophils % 0.3 % (0.1-12.0); Hematocrit 36.8 % (42.0-52.0); Hemoglobin 11.8 g/dL (14.1-18.0); Lymphocytes # 0.9 K/mm3 (0.7-4.5); Lymphocytes % 14.7 % (10-50); Mean Corpuscular Volume 96.7 fl (80-94); Mean Platelet Volume 7.2 fl (7.4-10.4); Monocytes # 0.5 K/mm3 (0.1-1.0); Monocytes % 8.9 % (1.7-9.3); Neutrophils # 4.4 K/mm3 (1.8-7.8); Neutrophils % 75.8 % (37.0-80.0); Platelet Count 333 K/mm3 (142-424); Red Blood Count 3.81 M/mm3 (4.60-6.20); Red Cell Distribution Width 13.7 % (11.5-17.5); White Blood Count 5.8 K/mm3 (4.8-10.8)
[2019-01-23 08:55] LABS: Albumin Level 2.3 gm/dL (3.4-5.0); Albumin/Globulin Ratio 0.7 (1.1-1.8); Anion Gap 13.7 mEq/L (5-15); Bilirubin,Total 0.3 mg/dL (0.2-1.0); Calcium 7.9 mg/dL (8.5-10.1); Globulin 3.5 gm/dl (1.3-3.2); Total Protein,Serum 5.8 gm/dL (6.4-8.2)
[2019-01-23 08:59] LABS: Potassium 2.7 mmoL/L (3.5-5.1)
--- NOTE | 2019-01-23 10:22 | Progress Note ---
[place] Objective - Objective: Last Vital Signs:: Last Vital Signs Temp 98.3 F 01/23/19 08:00 Pulse 79 01/23/19 08:00 Resp 20 01/23/19 08:00 BP 144/59 H 01/23/19 08:00 Pulse Ox 94 L 01/23/19 08:00 Test Results for Last 24 Hours: Laboratory Results - last 24 hr 01/22/19 12:06: POC Glucose 237 H 01/22/19 16:56: POC Glucose 236 H 01/22/19 21:13: POC Glucose 329 H* 01/23/19 06:05: POC Glucose 238 H 01/23/19 08:25: Amylase 115 01/23/19 08:25: WBC 5.8, RBC 3.81 L, Hgb 11.8 L, Hct 36.8 L, MCV 96.7 H, MCH 31.0, MCHC 32.0, RDW 13.7, Plt Count 333, MPV 7.2 L, Neut % (Auto) 75.8, Lymph % (Auto) 14.7, [place] % (Auto) 8.9, Eos % (Auto) 0.3, Baso % (Auto) 0.3, Neut # (Auto) 4.4, Lymph # (Auto) 0.9, [place] # (Auto) 0.5, Eos # (Auto) 0.0, Baso # (Auto) 0.0 01/23/19 08:25: Total Creatine Kinase 103, CK-MB (CK-2) 0.8 D, CK-MB (CK-2) Rel Index 0.8, Troponin I 0.03 01/23/19 08:25: Sodium 143, Potassium 2.7 L* D, Chloride 103, Carbon Dioxide 29, Anion Gap 13.7, BUN 21 H, Creatinine 0.89, Estimated Creat Clear 65, Estimated GFR 81, Est GFR ( Amer) 98, Glucose 284 H, Calcium 7.9 L, Total Bilirubin 0.3, AST 31, ALT 16, Alkaline Phosphatase 49, Total Protein 5.8 L, Albumin 2.3 L , Globulin 3.5 H, Albumin/Globulin Ratio 0.7 L, Lipase 134 - General Appearance: General Appearance:: alert, no acute distress, vigorous - Chest: Chest:: clavicles intact and symmetrical, lungs CTA anteriorly and posteriorly - Cardiac: Cardiovascular:: peripheral perfusion WNL [facility] NB Plan - Plan Patient Problems: Current Active Problems Hypoglycemia (Acute) Altered mental status (Acute) Weakness (Acute) Medication side effect (Acute) Pneumonia (Acute) Insulin dependent diabetes mellitus (Acute) Hypothyroidism (acquired) (Acute) History of prostate cancer (Acute) Abdominal pain (Acute) Medications: Current Medications Albuterol/Ipratropium (Duoneb 3ml Neb) 3 ml IH Q6HP PRN PRN Reason: Shortness Of Breath Stop: 02/17/19 20:26 Albuterol/Ipratropium (Duoneb 3ml Neb) 3 ml IH QIDRT [facility] Stop: 02/19/19 09:59 Last Admin: 01/23/19 06:45 Dose: 3 ml Ascorbic Acid (Vitamin C 500mg Tablet) 1,000 mg PO DAILY [facility] Stop: 02/23/19 08:59 Aspirin (Aspirin 81mg Enteric Coated Tablet) 81 mg PO DAILY [facility] Stop: 02/23/19 08:59 Furosemide (Lasix 40mg Tablet) 40 mg PO BIDL [facility] Stop: 02/22/19 15:59 Levofloxacin/Dextrose (Levofloxacin 750mg/150ml Premix) 750 mg in 150 mls @ 100 mls/hr IV Q24H [facility]; Protocol Stop: 02/02/19 20:59 Last Admin: 01/22/19 21:29 Dose: 100 mls/hr Sodium Chloride (Sod Chlor 0.9% 1000ml Bag) 1,000 mls @ 75 mls/hr IV .[id number] [facility] Stop: 02/19/19 06:34 Last Admin: 01/23/19 04:22 Dose: 75 mls/hr Ibuprofen (Motrin 400mg Tablet) 400 mg PO Q6HP PRN PRN Reason: Mild Pain Stop: 02/17/19 20:26 Last Admin: 01/21/19 04:52 Dose: 400 mg Insulin Human Lispro (Humalog 100 Units/Ml 3ml Vial (Ssi)) 0 unit SQ ACHS [facility]; Protocol Stop: 02/19/19 10:59 Last Admin: 01/23/19 06:06 Dose: 4 unit Levothyroxine Sodium (Synthroid 25mcg (0.025mg) Tablet) 25 mcg PO DAILYDM [facility] Stop: 02/23/19 06:59 Multivitamins (Multi-Vitamin Plain) 1 each PO 1700 [facility] Stop: 02/22/19 16:59 *Pat Own Med* Carbidopa/Levodopa 0 each PO TID [facility] Stop: 02/18/19 10:59 Last Admin: 01/23/19 08:45 Dose: 2 each Non-Formulary Medication (Perindopril Erbumine [Perindopril Erbumine]) 2 mg PO DAILY [facility] Stop: 02/18/19 10:59 Last Admin: 01/23/19 08:45 Dose: 2 mg Patient's Own Medication Memantine /Donepezil 15/09 1 each PO HS [facility]ON[facility] Stop: 02/18/19 20:59 Last Admin: 01/22/19 21:32 Dose: 1 each Ondansetron HCl (Zofran 4mg/2ml Vial) 4 mg IV Q8HP PRN PRN Reason: Nausea Stop: 02/17/19 20:26 Pantoprazole Sodium (Protonix 40mg Tablet) 40 mg PO HS JONO Stop: 02/18/19 20:59 Last Admin: 01/22/19 21:29 Dose: 40 mg Potassium Chloride (Micro-K 10meq Capsule) 10 meq PO TID JON[facility] Stop: 02/19/19 12:59 Last Admin: 01/23/19 08:44 Dose: 10 meq Spironolactone (Aldactone 25mg Tablet) 25 mg PO DAILY [facility] Stop: 02/23/19 08:59
--- NOTE | 2019-01-23 12:46 | Discharge Summary ---
Addendum entered and electronically signed by JAVON Whelan 01/24/19 08:11: Lucio abreu refused to take the patient yesterday without prescriptions for gabapentin and tramadol according to nursing staff. There are no changes with the patient from yesterday and the patient is ready to be discharged today for short-term rehab. Original Note: General - General Admission date:: 01/18/19 Discharge date: 01/23/19 HPI HPI: This 88-year-old white male diabetic suffered a decline in his mental and physical health over the past several months. He was admitted through the emergency room last night with a definite change in mental status and with weakness. He was brought to the emergency room by his family. They are not with him during this assessment and the patient is quite confused and disoriented during this assessment. On admission he had an elevated white blood cell count but on repeat this morning it was normal. He has had episodic low- grade fever since admission. The nurse reports that he seems less confused this morning but is definitely confused this afternoon. His blood sugar was found to be low when he was admitted through the emergency room. He takes carbidopa levodopa for Parkinson's disease. His family states that he has become more of a management issue recently. Hospital Course Hospital Course: Labs were ordered including cardiac enzymes. His chest x-ray showed poor inspiration and it was difficult for the radiologist to tell if pneumonia was present in the right lung. His head CT showed nothing acute other than opacification of the right maxillary sinus. He had a repeat chest x-ray showing a possible right upper lobe bronchopneumonia. He was started on Levaquin and duo nebs. He was also started on sliding scale insulin. His CPK had been elevated, therefore his pravastatin and fenofibrate were discontinued. He had a fall at home and it was presumed this was elevated from the fall. X-rays were ordered of his knees and hips and he was started on potassium for hypokalemia. The x-ray of his left knee showed osteoarthritis but nothing acute. The x-ray of the right knee showed osteoarthritis and a joint effusion. The x-ray of his hips showed osteoarthritis but nothing acute. He did have a flu test done which was negative and his sputum grew normal ivy. Physical therapy was consulted but the patient refused to participate. It was felt the patient would need placement for short-term rehab and his family preferred [facility]. He did complain of some right upper quadrant and epigastric abdominal pain throughout his stay and ate minimally. Repeat labs were ordered and his amylase and lipase were normal. His CMP was relatively normal except for a low potassium at 2.7, therefore he was given 20 mEq of potassium IV and p.o. potassium was continued as was his Spironolactone. He will be stable to be discharged to [facility] for short-term rehab. Objective Vital signs: Temp Pulse Resp BP Pulse Ox 99.1 F 72 19 146/64 H 92 L 01/23/19 12:00 01/23/19 12:00 01/23/19 12:00 01/23/19 12:00 01/23/19 12:00 Narrative: - Constitutional Comments: He was in bed resting at the time of this exam. He was asleep and awakened. He was confused and disoriented and unable to identify me or his location. He seemed to have trouble directing his gaze. - *Routine HEENT Exam Head: Present: normocephalic Eye: Present: PERRL. Absent: conjunctival icterus (But there was chemosis present) ENT: Present: mucous membranes moist - *Routine Neck Exam Present: supple - Routine Chest/Breast/Axilla Exam Chest wall: Absent: tenderness Axillae: Absent: lymphadenopathy - *Routine Respiratory Exam Present: decreased breath sounds, CTA bilaterally - *Routine Cardiovascular Exam Present: RRR - *Routine Abdominal Exam Present: soft Comments: He describes some epigastric tenderness. - *Routine Rectal Exam Comments: No rectal exam done. - *Routine Extremities Exam Absent: edema - *Routine Skin Exam Present: intact, dry - *Routine Neurological Exam Present: altered mental status. Absent: alert, oriented X3 Babinski was equivocal on the right Results Labs on day of discharge: Labs from last 24 hours 01/23/19 01/23/19 01/23/19 11:04 08:25 08:25 WBC RBC Hgb Hct MCV MCH MCHC RDW Plt Count MPV Neut % (Auto) Lymph % (Auto) [place] % (Auto) Eos % (Auto) Baso % (Auto) Neut # (Auto) Lymph # (Auto) [place] # (Auto) Eos # (Auto) Baso # (Auto) Sodium 143 Potassium 2.7 L* D Chloride 103 Carbon Dioxide 29 Anion Gap 13.7 BUN 21 H Creatinine 0.89 Estimated Creat Clear 65 Estimated GFR 81 Est GFR ( Amer) 98 Glucose 284 H POC Glucose 246 H Calcium 7.9 L Total Bilirubin 0.3 AST 31 ALT 16 Alkaline Phosphatase 49 Total Creatine Kinase 103 CK-MB (CK-2) 0.8 D CK-MB (CK-2) Rel Index 0.8 Troponin I 0.03 Total Protein 5.8 L Albumin 2.3 L Globulin 3.5 H Albumin/Globulin Ratio 0.7 L Amylase Lipase 134 01/23/19 01/23/19 01/23/19 08:25 08:25 06:05 WBC 5.8 RBC 3.81 L Hgb 11.8 L Hct 36.8 L MCV 96.7 H MCH 31.0 MCHC 32.0 RDW 13.7 Plt Count 333 MPV 7.2 L Neut % (Auto) 75.8 Lymph % (Auto) 14.7 [place] % (Auto) 8.9 Eos % (Auto) 0.3 Baso % (Auto) 0.3 Neut # (Auto) 4.4 Lymph # (Auto) 0.9 [place] # (Auto) 0.5 Eos # (Auto) 0.0 Baso # (Auto) 0.0 Sodium Potassium Chloride Carbon Dioxide Anion Gap BUN Creatinine Estimated Creat Clear Estimated GFR Est GFR ( Amer) Glucose POC Glucose 238 H Calcium Total Bilirubin AST ALT Alkaline Phosphatase Total Creatine Kinase CK-MB (CK-2) CK-MB (CK-2) Rel Index Troponin I Total Protein Albumin Globulin Albumin/Globulin Ratio Amylase 115 Lipase 01/22/19 01/22/19 21:13 16:56 WBC RBC Hgb Hct MCV MCH MCHC RDW Plt Count MPV Neut % (Auto) Lymph % (Auto) [place] % (Auto) Eos % (Auto) Baso % (Auto) Neut # (Auto) Lymph # (Auto) [place] # (Auto) Eos # (Auto) Baso # (Auto) Sodium Potassium Chloride Carbon Dioxide Anion Gap BUN Creatinine Estimated Creat Clear Estimated GFR Est GFR ( Amer) Glucose POC Glucose 329 H* 236 H Calcium Total Bilirubin AST ALT Alkaline Phosphatase Total Creatine Kinase CK-MB (CK-2) CK-MB (CK-2) Rel Index Troponin I Total Protein Albumin Globulin Albumin/Globulin Ratio Amylase Lipase DS: Diagnosis - Discharge Diagnosis (1) Insulin dependent diabetes mellitus Status: Acute (2) Hypothyroidism (acquired) Status: Acute (3) History of prostate cancer Status: Acute (4) Altered mental status Status: Acute (5) Hypoglycemia Status: Acute (6) Medication side effect Status: Acute (7) Pneumonia Status: Acute (8) Weakness Status: Acute (9) Abdominal pain Status: Acute Discharge Plan - Patient Discharge Instructions Patient Instructions: Pneumonia-Adult, Hypoglycemia, Pneumococcal Vaccine, DI for Pneumonia -- Adult, DI for Hypoglycemia, DI for Muscle Weakness, DI for Altered Mental Status - Follow up Plan Follow up with: Kunal Fair MD [Primary Care Provider] - Disposition: [facility] Home Medications: Home Medications Medication Instructions Recorded Confirmed Type Aspirin [Aspir 81] 81 mg PO DAILY 01/18/19 01/18/19 History Furosemide [Furosemide 40MG tAB] 40 mg PO BID 01/18/19 01/19/19 History Glimepiride 4 mg PO BID 01/18/19 01/19/19 History Insulin NPH Hum/Reg Insulin Hm 0 unit SQ DIRECTED 01/18/19 01/19/19 History [Humulin 70/30 Kwikpen] Levothyroxine Sodium [Synthroid 25 mcg PO DAILY 01/18/19 01/18/19 History 25mcg (0.025mg) tablet] Memantine HCl/Donepezil HCl 1 cap PO HS 01/18/19 01/19/19 History [Namzaric 21 mg-10 mg Capsule] Metformin HCl 1,000 mg PO BID 01/18/19 01/19/19 History Multivitamin [Multi-Day Vitamins] 1 each PO DAILY 01/18/19 01/18/19 History Perindopril Erbumine 2 mg PO DAILY 01/18/19 01/19/19 History Spironolactone 25 mg PO DAILY 01/18/19 01/18/19 History Tramadol HCl [Tramadol 50mg 50 mg PO TID 01/18/19 01/19/19 History Tab] Carbidopa/Levodopa 0 tab PO DIRECTED 01/19/19 01/19/19 History [Carbidopa/Levodopa 25/100mg Tablet] Gabapentin 800 mg PO TID 01/19/19 01/19/19 History Carbidopa/Levodopa [Carbidopa-Levo 0 each PO TID 01/23/19 Rx 25-100 mg Odt] Hydrocod/Acet 5/325 mg [[place] 1 tab PO BIDP PRN #60 tablet 01/23/19 Rx 5/325mg tablet] Potassium Chloride [Micro-K 10mEq 10 meq PO TID #90 capsule.er 01/23/19 Rx cap] Prescriptions/Medication Reconciliation: New Potassium Chloride [Micro-K 10mEq cap] 10 meq PO TID #90 capsule.er Carbidopa/Levodopa [Carbidopa-Levo 25-100 mg Odt] 0 each PO TID Continue Furosemide [Furosemide 40MG tAB] 40 mg PO BID Tramadol HCl [Tramadol 50mg Tab] 50 mg PO TID Spironolactone 25 mg PO DAILY Perindopril Erbumine 2 mg PO DAILY Multivitamin [Multi-Day Vitamins] 1 each PO DAILY Metformin HCl 1,000 mg PO BID Memantine HCl/Donepezil HCl [Namzaric 21 mg-10 mg Capsule] 1 cap PO HS Insulin NPH Hum/Reg Insulin Hm [Humulin 70/30 Kwikpen] 0 unit SQ DIRECTED Glimepiride 4 mg PO BID Aspirin [Aspir 81] 81 mg PO DAILY Carbidopa/Levodopa [Carbidopa/Levodopa 25/100mg Tablet] 0 tab PO DIRECTED Levothyroxine Sodium [Synthroid 25mcg (0.025mg) tablet] 25 mcg PO DAILY Gabapentin 800 mg PO TID Changed Hydrocod/Acet 5/325 mg [[place] 5/325mg tablet] 1 tab PO BIDP PRN #60 tablet PRN Reason: PAIN Discontinued Pravastatin Sodium 80 mg PO HS Fenofibrate Nanocrystallized [Fenofibrate] 145 mg PO DAILY Ascorbic Acid [Vitamin C with Magdalena Hips] 1,000 mg PO DAILY Metoclopramide HCl [Reglan 5mg Tablet] 2.5 mg PO TIDP PRN PRN Reason: STOMACH
--- NOTE | 2019-01-24 08:11 | Progress Note ---
Internal Medicine - PN: Subj *Date: 01/24/19 *Time: 08:09 Interval history: Patient is resting this morning. He states he slept decently throughout the night. He has not eaten any breakfast this morning and states his abdomen is still slightly tender. Exam Vital signs and Labs for Last 24 Hours: Temp Pulse Resp BP Pulse Ox 98.4 F 73 16 148/67 H 92 L 01/24/19 07:41 01/24/19 07:41 01/24/19 07:41 01/24/19 07:41 01/24/19 07:41 Laboratory Results - last 24 hr 01/23/19 08:25: Amylase 115 01/23/19 08:25: WBC 5.8, RBC 3.81 L, Hgb 11.8 L, Hct 36.8 L, MCV 96.7 H, MCH 31.0, MCHC 32.0, RDW 13.7, Plt Count 333, MPV 7.2 L, Neut % (Auto) 75.8, Lymph % (Auto) 14.7, [place] % (Auto) 8.9, Eos % (Auto) 0.3, Baso % (Auto) 0.3, Neut # (Auto) 4.4, Lymph # (Auto) 0.9, [place] # (Auto) 0.5, Eos # (Auto) 0.0, Baso # (Auto) 0.0 01/23/19 08:25: Total Creatine Kinase 103, CK-MB (CK-2) 0.8 D, CK-MB (CK-2) Rel Index 0.8, Troponin I 0.03 01/23/19 08:25: Sodium 143, Potassium 2.7 L* D, Chloride 103, Carbon Dioxide 29, Anion Gap 13.7, BUN 21 H, Creatinine 0.89, Estimated Creat Clear 65, Estimated GFR 81, Est GFR ( Amer) 98, Glucose 284 H, Calcium 7.9 L, Total Bilirubin 0.3, AST 31, ALT 16, Alkaline Phosphatase 49, Total Protein 5.8 L, Albumin 2.3 L , Globulin 3.5 H, Albumin/Globulin Ratio 0.7 L, Lipase 134 01/23/19 11:04: POC Glucose 246 H 01/23/19 15:45: Potassium 3.2 L 01/23/19 16:33: POC Glucose 285 H 01/23/19 20:30: POC Glucose 216 H 01/24/19 05:48: POC Glucose 238 H I & O for Last 24 hours: Intake & Output 01/21/19 01/22/19 01/23/19 01/24/19 11:59 11:59 11:59 11:59 Intake Total 3480 / 3480 2372 / 2372 590 / 590 770 / 770 Output Total 1200 / 1200 2800 / 2800 1350 / 1350 Balance 2280 / 2280 2372 / 2372 -2210 / -2210 -580 / -580 Weight 194 lb 12.8 oz 192 lb 4 oz 185 lb 7 oz - Constitutional no acute distress - *Routine Respiratory Exam Present: rales (bibasilar) - *Routine Cardiovascular Exam Present: RRR - *Routine Abdominal Exam Present: soft, normoactive bowel sounds, tenderness (in the epigastric area) - *Routine Extremities Exam Absent: cyanosis, clubbing, edema - *Routine Skin Exam Present: warm. Absent: rash Assessment and Plan (1) Insulin dependent diabetes mellitus Current visit: Yes Status: Acute Category: Medical Code(s): E11.9 - Type 2 diabetes mellitus without complications; Z79.4 - jail (current) use of insulin (2) Hypothyroidism (acquired) Current visit: Yes Status: Acute Category: Medical Code(s): E03.9 - Hypothyroidism, unspecified (3) History of prostate cancer Current visit: Yes Status: Acute Category: Medical Code(s): Z85.46 - Personal history of malignant neoplasm of prostate (4) Altered mental status Current visit: Yes Status: Acute Category: Medical Code(s): R41.82 - Altered mental status, unspecified (5) Hypoglycemia Current visit: Yes Status: Acute Category: Medical Code(s): E16.2 - Hypoglycemia, unspecified (6) Medication side effect Current visit: Yes Status: Acute Category: Medical Code(s): T88.7XXA - Unspecified adverse effect of drug or medicament, initial encounter (7) Pneumonia Current visit: Yes Status: Acute Category: Medical Code(s): J18.9 - Pneumonia, unspecified organism (8) Weakness Current visit: Yes Status: Acute Category: Medical Code(s): R53.1 - Weakness (9) Abdominal pain Current visit: Yes Status: Acute Category: Medical Code(s): R10.9 - Unspecified abdominal pain - Assessment and plan all Dx Assessment and Plan for all problems:: Patient to be discharged to [facility] today for short-term rehab.
== END 2019-01-24 10:25 | DRG 195 ==
LOC: 2ND 17:31 → ER 17:31 → OBSVTOIN 20:47 → 2ND 20:48
PROVIDERS: ADMIT Emergency Medicine; ATTEND Family Medicine
CPT/HCPCS: 36415; 70450; 71010; 71045; 73521; 73560; 80048; 80053; 80305; 81001; 82150; 82550; 82553; 82803; 82962; 83690; 84132; 84484; 85007; 85025; 87070; 87205; 87275; 87276; 93005; 94640; 94761; 96365; 96366; 97110; 97162; 97530; 99284; J1956